=== PATIENT | female | born 1970 | race African-American/Black ===

== ENCOUNTER 2017-02-21 13:43 | Emergency (ER) | payer OTHER ==
[2017-02-21 16:01] VITALS: BP 124/85
== END 2017-02-21 16:01 | disposition home or self-care (01) ==
LOC: ED 13:43
DX: J01.90 Acute sinusitis, unspecified (principal); J45.909 Unspecified asthma, uncomplicated

== ENCOUNTER 2017-03-12 22:39 | Emergency (ER) | payer OTHER ==
[2017-03-13 00:59] VITALS: BP 132/81
== END 2017-03-13 00:59 | disposition home or self-care (01) ==
LOC: ED 22:39
DX: B37.9 Candidiasis, unspecified (principal); R05 Cough; Z79.52 Long term (current) use of systemic steroids; Z88.0 Allergy status to penicillin; Z90.81 Acquired absence of spleen; Z93.0 Tracheostomy status

== ENCOUNTER 2018-04-19 14:10 | Emergency (ER) | payer OTHER ==
[~2018-04-19] VITALS: Ht 165.1 cm; Wt 40.0 kg
[~2018-04-19 14:10] MED LIST: BD LACTINEX1.4 MG PO; LEVAQUIN750 MG PO; PREDNISONE10 MG PO; SYMBICORT1 AE3 INH; VENTOLIN H0.09 MG/A1 INH
[2018-04-19 14:14] VITALS: Ht 165.1 cm; Wt 40.0 kg
[2018-04-19 15:10] LABS: CARBON DIOXIDE 29.2 mmol/L (21-32); CHLORIDE SERUM 102 mmol/L (98-107); CREATININE SERUM 0.8 mg/dL (0.6-1.0); GFR1 > 60 mL/min; GLUCOSE SERUM 82 mg/dL (74-106); POTASSIUM SERUM 3.8 mmol/L (3.5-5.1); SODIUM SERUM 136 mmol/L (136-145)
[2018-04-19 15:11] LABS: BASOPHIL % 0.4 % (0-2)
[2018-04-19 15:12] LABS: PLATELET COUNT 438 x10^3mcL (130-400); RED CELL DISTRIBUTION WIDTH 14.9 % (11.5-14.5)
[2018-04-19 15:21] LABS: ALBUMIN 3.9 g/dL (3.4-5.0); ALKALINE PHOSPHATASE 56 U/L (46-116); ALT/SGPT 42 U/L (14-59); AMYLASE 125 U/L (25-115); AST/SGOT 25 U/L (15-37); BILIRUBIN TOTAL 0.8 mg/dL (0.20-1.00); LIPASE 146 IU/L (73-393); TOTAL PROTEIN, SERUM 7.8 g/dL (6.4-8.2)
[2018-04-19 16:51] VITALS: BP 115/74
== END 2018-04-19 16:51 | disposition home or self-care (01) ==
LOC: ED 14:10
PROVIDERS: Emergency Medicine
DX: R10.13 Epigastric pain (principal); R11.10 Vomiting, unspecified; R19.7 Diarrhea, unspecified; J45.909 Unspecified asthma, uncomplicated; Z88.0 Allergy status to penicillin; Z88.8 Allergy status to other drugs, medicaments and biological substances
CPT/HCPCS: J1885; J7030; Q0162

== ENCOUNTER 2018-04-22 03:33 | Inpatient (IN) | payer OTHER ==
[~2018-04-22] VITALS: Ht 165.1 cm; Wt 39.9 kg
[2018-04-22 04:03] VITALS: Ht 165.1 cm; Wt 39.9 kg
[2018-04-22 05:03] LABS: BASOPHIL % 0.5 % (0-2); PLATELET COUNT 387 x10^3mcL (130-400)
[2018-04-22 05:05] LABS: RED CELL DISTRIBUTION WIDTH 14.9 % (11.5-14.5)
[2018-04-22 05:10] LABS: CALCIUM 8.6 mg/dL (8.5-10.1); CARBON DIOXIDE 26.5 mmol/L (21-32); CHLORIDE SERUM 105 mmol/L (98-107); CREATININE SERUM 0.9 mg/dL (0.6-1.0); GFR1 > 60 mL/min; GLUCOSE SERUM 93 mg/dL (74-106); POTASSIUM SERUM 3.5 mmol/L (3.5-5.1); SODIUM SERUM 140 mmol/L (136-145)
[2018-04-22 05:14] LABS: ALBUMIN 3.5 g/dL (3.4-5.0); ALKALINE PHOSPHATASE 50 U/L (46-116); ALT/SGPT 25 U/L (14-59); AST/SGOT 16 U/L (15-37); BILIRUBIN TOTAL 0.61 mg/dL (0.20-1.00); LIPASE 127 IU/L (73-393); TOTAL PROTEIN, SERUM 6.9 g/dL (6.4-8.2)
[2018-04-22 06:22] LABS: UA SPECIFIC GRAVITY <=1.005 (1.005-1.035); microscopic required? YES; urine erythrocyte 1+ (NEGATIVE)
[2018-04-22 10:01] LABS: T3 TOTAL 0.91 ng/mL
[2018-04-22 10:04] VITALS: BP 106/71
[2018-04-22 10:06] LABS: FREE T4 0.78 ng/dL (0.76-1.46); FREE THYROXINE INDEX 2.3 ug/dL (1.4-4.5); T4(THYROXINE) 6.9 ug/dL (4.7-13.3)
[2018-04-22 10:09] LABS: CHOLESTEROL/HDL RATIO 2.2
[2018-04-22 10:56] LABS: AMPHETAMINE QUAL UR NONE DETECTED (See below)
[2018-04-22 13:00] VITALS: BP 92/54
[2018-04-22 17:13] VITALS: BP 95/53
[2018-04-22 20:56] VITALS: BP 90/57
[2018-04-23 01:00] VITALS: BP 96/55
[2018-04-23 05:27] VITALS: BP 117/74
[2018-04-23 06:09] LABS: BASOPHIL % 0.6 % (0-2); PLATELET COUNT 386 x10^3mcL (130-400)
[2018-04-23 06:30] LABS: CALCIUM 7.6 mg/dL (8.5-10.1); CARBON DIOXIDE 24.8 mmol/L (21-32); CHLORIDE SERUM 109 mmol/L (98-107); CREATININE SERUM 0.7 mg/dL (0.6-1.0); GFR1 > 60 mL/min; GLUCOSE SERUM 85 mg/dL (74-106); MAGNESIUM 2.2 mg/dL (1.8-2.4); PHOSPHOROUS 3.1 mg/dL (2.5-4.9); POTASSIUM SERUM 3.5 mmol/L (3.5-5.1); SODIUM SERUM 143 mmol/L (136-145)
[2018-04-23 06:41] LABS: RED CELL DISTRIBUTION WIDTH 14.7 % (11.5-14.5)
[2018-04-23 09:18] VITALS: BP 92/50
[2018-04-23 13:26] VITALS: BP 95/62
[2018-04-23 16:18] VITALS: BP 97/63
[2018-04-23 21:25] VITALS: BP 81/54
[2018-04-24 05:38] VITALS: BP 113/72
[2018-04-24 09:16] VITALS: BP 94/64
[2018-04-24 10:34] LABS: BASOPHIL % 0.4 % (0-2)
[2018-04-24 10:38] LABS: CALCIUM 8.7 mg/dL (8.5-10.1); CARBON DIOXIDE 23.8 mmol/L (21-32); CHLORIDE SERUM 109 mmol/L (98-107); CREATININE SERUM 0.7 mg/dL (0.6-1.0); GFR1 > 60 mL/min; GLUCOSE SERUM 70 mg/dL (74-106); POTASSIUM SERUM 4.7 mmol/L (3.5-5.1); SODIUM SERUM 143 mmol/L (136-145)
[2018-04-24 10:47] LABS: PLATELET COUNT 408 x10^3mcL (130-400); RED CELL DISTRIBUTION WIDTH 15.2 % (11.5-14.5)
[2018-04-24 16:22] VITALS: BP 94/64
[2018-04-24] MEDS ORDERED: MAC100 PO (16:28)
== END 2018-04-24 19:24 | disposition home or self-care (01) | DRG 388 ==
LOC: ED 03:33 → MU 08:37 → DU 08:37 → MU 09:49 → DU 09:52 → MU 04-23 10:02
PROVIDERS: Emergency Medicine; Internal Medicine
DX: K56.7 Ileus, unspecified (principal); E43 Unspecified severe protein-calorie malnutrition; N39.0 Urinary tract infection, site not specified; Z68.1 Body mass index [BMI] 19.9 or less, adult; E83.42 Hypomagnesemia
CPT/HCPCS: 83880; 84439; J0696; J2405; J2765; J3475; J7030; J7040; J7042; Q0092

== ENCOUNTER 2018-10-06 18:47 | Emergency (ER) | payer OTHER ==
[~2018-10-06] VITALS: Ht 165.1 cm; Wt 47.2 kg
[~2018-10-06 18:47] MED LIST changes: +MAC100 PO
[2018-10-06 18:58] VITALS: Ht 165.1 cm; Wt 47.2 kg
[2018-10-06 19:45] VITALS: BP 118/81
== END 2018-10-06 19:45 | disposition home or self-care (01) ==
LOC: ED 18:47
DX: M79.5 Residual foreign body in soft tissue (principal); J32.9 Chronic sinusitis, unspecified; J45.909 Unspecified asthma, uncomplicated; Z90.81 Acquired absence of spleen; Z88.0 Allergy status to penicillin; Z88.6 Allergy status to analgesic agent; Z88.8 Allergy status to other drugs, medicaments and biological substances; Z98.890 Other specified postprocedural states

== ENCOUNTER 2018-11-03 03:28 | Emergency (ER) | payer OTHER ==
[~2018-11-03] VITALS: Ht 157.5 cm; Wt 56.7 kg
[2018-11-03 03:38] VITALS: Ht 157.5 cm; Wt 56.7 kg
[2018-11-03 04:06] LABS: PLATELET COUNT 270 x10^3mcL (130-400); RED CELL DISTRIBUTION WIDTH 13.8 % (11.5-14.5)
[2018-11-03 04:39] LABS: CARBON DIOXIDE 33.3 mmol/L (21-32); CHLORIDE SERUM 103 mmol/L (98-107); CREATININE SERUM 0.9 mg/dL (0.6-1.0); GFR1 > 60 mL/min; GLUCOSE SERUM 87 mg/dL (74-106); SODIUM SERUM 139 mmol/L (136-145)
[2018-11-03 04:43] LABS: ALBUMIN 3.8 g/dL (3.4-5.0); ALKALINE PHOSPHATASE 43 U/L (46-116); ALT/SGPT 35 U/L (14-59); AST/SGOT 24 U/L (15-37); BILIRUBIN TOTAL 0.4 mg/dL (0.20-1.00); LIPASE 143 IU/L (73-393); TOTAL PROTEIN, SERUM 7.6 g/dL (6.4-8.2)
[2018-11-03 04:56] LABS: BAND NEUTROPHIL 1 % (0-10); MONOCYTE 12 % (0-7); SEGMENTED NEUTROPHILS 29 % (37-75)
[2018-11-03 05:01] LABS: rbc morphology (normal/abnorm) ABNORMAL (NORMAL)
[2018-11-03 05:02] LABS: PLATELET MORPHOLOGY PLATELETS NORMAL; acanthocyte (spur cell) 1+
[2018-11-03 05:25] VITALS: BP 132/88
== END 2018-11-03 05:25 | disposition home or self-care (01) ==
LOC: ED 03:28
PROVIDERS: Emergency Medicine
DX: N39.0 Urinary tract infection, site not specified (principal); Z88.0 Allergy status to penicillin; Z88.6 Allergy status to analgesic agent; Z88.8 Allergy status to other drugs, medicaments and biological substances; Z98.890 Other specified postprocedural states; Z90.49 Acquired absence of other specified parts of digestive tract
CPT/HCPCS: 36415

== ENCOUNTER 2019-01-12 12:25 | Emergency (ER) | payer OTHER ==
[~2019-01-12] VITALS: Ht 165.1 cm; Wt 50.3 kg
[2019-01-12 12:34] VITALS: BP 121/71; Ht 165.1 cm; Wt 50.3 kg
== END 2019-01-12 15:10 | disposition home or self-care (01) ==
LOC: ED 12:25
DX: S00.451A Superficial foreign body of right ear, initial encounter (principal); H60.91 Unspecified otitis externa, right ear; J45.909 Unspecified asthma, uncomplicated; Q89.01 Asplenia (congenital); Z98.890 Other specified postprocedural states; Z88.0 Allergy status to penicillin; Z88.8 Allergy status to other drugs, medicaments and biological substances; Z87.19 Personal history of other diseases of the digestive system; W45.8XXA Other foreign body or object entering through skin, initial encounter; Y93.89 Activity, other specified; Y92.89 Other specified places as the place of occurrence of the external cause; Y99.8 Other external cause status

== ENCOUNTER 2019-02-17 00:32 | Emergency (ER) | payer OTHER ==
[~2019-02-17] VITALS: Ht 165.1 cm; Wt 52.2 kg
[2019-02-17 00:44] VITALS: Ht 165.1 cm; Wt 52.2 kg
[2019-02-17 01:23] LABS: AMPHETAMINE QUAL UR NONE DETECTED (See below)
[2019-02-17 02:16] LABS: CALCIUM 8.6 mg/dL (8.5-10.1); CARBON DIOXIDE 30.7 mmol/L (21-32); CHLORIDE SERUM 104 mmol/L (98-107); CREATININE SERUM 0.7 mg/dL (0.6-1.0); GFR1 > 60 mL/min; GLUCOSE SERUM 96 mg/dL (74-106); MAGNESIUM 1.9 mg/dL (1.8-2.4); PHOSPHOROUS 4.2 mg/dL (2.5-4.9); POTASSIUM SERUM 3.9 mmol/L (3.5-5.1); SODIUM SERUM 141 mmol/L (136-145)
[2019-02-17 02:31] VITALS: BP 123/67
== END 2019-02-17 03:17 | disposition home or self-care (01) ==
LOC: ED 00:32
PROVIDERS: Emergency Medicine
DX: M79.18 Myalgia, other site (principal); R41.82 Altered mental status, unspecified; J45.909 Unspecified asthma, uncomplicated; Z98.890 Other specified postprocedural states; Z88.0 Allergy status to penicillin; Z88.6 Allergy status to analgesic agent; Z88.8 Allergy status to other drugs, medicaments and biological substances
CPT/HCPCS: 36415

== ENCOUNTER 2019-08-27 13:30 | Emergency (ER) | payer OTHER ==
[~2019-08-27] VITALS: Ht 165.1 cm; Wt 54.4 kg
[2019-08-27 13:47] VITALS: Ht 165.1 cm; Wt 54.4 kg
[2019-08-27 16:46] VITALS: BP 119/77
== END 2019-08-27 17:04 | disposition home or self-care (01) ==
LOC: ED 13:30
DX: T78.3XXA Angioneurotic edema, initial encounter (principal); J45.909 Unspecified asthma, uncomplicated; Z88.6 Allergy status to analgesic agent; Z88.0 Allergy status to penicillin; Z88.8 Allergy status to other drugs, medicaments and biological substances
CPT/HCPCS: J0171; J1100

== ENCOUNTER 2019-09-03 13:11 | Emergency (ER) | payer OTHER ==
[~2019-09-03] VITALS: Ht 165.1 cm; Wt 54.4 kg
[2019-09-03 13:38] VITALS: Ht 165.1 cm; Wt 54.4 kg
[2019-09-03 14:21] LABS: BASOPHIL % 0.5 % (0-2); RED CELL DISTRIBUTION WIDTH 13.6 % (11.5-14.5)
[2019-09-03 14:35] LABS: PLATELET COUNT 405 x10^3mcL (130-400)
[2019-09-03 15:11] VITALS: BP 102/66
[2019-09-03 15:15] LABS: CALCIUM 8.4 mg/dL (8.5-10.1); CARBON DIOXIDE 28.4 mmol/L (21-32); CHLORIDE SERUM 103 mmol/L (98-107); CREATININE SERUM 0.8 mg/dL (0.6-1.0); GFR1 > 60 mL/min; GLUCOSE SERUM 94 mg/dL (74-106); SODIUM SERUM 140 mmol/L (136-145)
[2019-09-03 15:20] LABS: ALKALINE PHOSPHATASE 50 U/L (46-116); ALT/SGPT 25 U/L (14-59); AST/SGOT 21 U/L (15-37); BILIRUBIN TOTAL 0.4 mg/dL (0.20-1.00); LIPASE 190 IU/L (73-393)
[2019-09-03 15:23] LABS: AMYLASE 203 U/L (25-115)
== END 2019-09-03 15:45 | disposition home or self-care (01) ==
LOC: ED 13:11
DX: K59.00 Constipation, unspecified (principal); R10.84 Generalized abdominal pain; R14.0 Abdominal distension (gaseous)
CPT/HCPCS: 36415; Q0162

== ENCOUNTER 2019-11-27 18:38 | Emergency (ER) | payer OTHER ==
[~2019-11-27] VITALS: Ht 162.6 cm; Wt 55.8 kg
[2019-11-27 18:59] VITALS: Ht 162.6 cm; Wt 55.8 kg
== END 2019-11-27 19:24 | disposition home or self-care (01) ==
LOC: ED 18:38
DX: J40 Bronchitis, not specified as acute or chronic (principal); J45.909 Unspecified asthma, uncomplicated; Z87.19 Personal history of other diseases of the digestive system; Z88.0 Allergy status to penicillin; Z88.6 Allergy status to analgesic agent
CPT/HCPCS: 87804

== ENCOUNTER 2020-10-04 08:31 | Emergency (ER) | payer OTHER ==
[~2020-10-04] VITALS: Ht 165.1 cm; Wt 53.5 kg
[~2020-10-04 08:31] MED LIST changes: +AZITHROMYCIN500 M3 PO; +BEN50 PO; +PEPCID AC20 M2 PO
[2020-10-04 08:53] VITALS: BP 130/736; Ht 165.1 cm; Wt 53.5 kg
== END 2020-10-04 14:45 | disposition left against medical advice (07) ==
LOC: ED 08:31
DX: Z53.21 Procedure and treatment not carried out due to patient leaving prior to being seen by health care provider (principal)

== ENCOUNTER 2020-11-19 05:50 | Emergency (ER) | payer OTHER ==
[~2020-11-19] VITALS: Ht 170.2 cm; Wt 49.9 kg
[2020-11-19 06:08] VITALS: Ht 170.2 cm; Wt 49.9 kg
[2020-11-19 08:54] LABS: UA SPECIFIC GRAVITY >=1.030 (1.005-1.035); microscopic required? YES; urine erythrocyte TRACE (NEGATIVE)
[2020-11-19 10:29] VITALS: BP 123/87
== END 2020-11-19 10:29 | disposition home or self-care (01) ==
LOC: ED 05:50
PROVIDERS: Emergency Medicine
DX: J45.909 Unspecified asthma, uncomplicated (principal); M54.5 Low back pain; R51.9 Headache, unspecified; Z90.89 Acquired absence of other organs; Z20.828 Contact with and (suspected) exposure to other viral communicable diseases; Z88.0 Allergy status to penicillin; Z88.6 Allergy status to analgesic agent; Z88.8 Allergy status to other drugs, medicaments and biological substances
CPT/HCPCS: U0003

== ENCOUNTER 2020-12-06 06:53 | Emergency (ER) | payer OTHER ==
[~2020-12-06] VITALS: Ht 170.2 cm; Wt 49.9 kg
[2020-12-06 07:19] VITALS: Ht 170.2 cm; Wt 49.9 kg
[2020-12-06 08:34] LABS: BASOPHIL % 0.2 % (0.2-1.3); PLATELET COUNT 342 x10^3mcL (179-408); RED CELL DISTRIBUTION WIDTH 13.5 % (12.3-17.7)
[2020-12-06 08:40] LABS: CALCIUM 8.8 mg/dL (8.5-10.1); CARBON DIOXIDE 34.3 mmol/L (21-32); CHLORIDE SERUM 104 mmol/L (98-107); CREATININE SERUM 0.7 mg/dL (0.6-1.0); GFR1 > 60 mL/min; GLUCOSE SERUM 81 mg/dL (74-106); POTASSIUM SERUM 3.5 mmol/L (3.5-5.1); SODIUM SERUM 141 mmol/L (136-145)
[2020-12-06] MEDS ORDERED: AZITHROMYCIN500 M3 PO (10:12)
[2020-12-06 10:40] VITALS: BP 128/79
== END 2020-12-06 10:40 | disposition home or self-care (01) ==
LOC: ED 06:53
PROVIDERS: Emergency Medicine
DX: J40 Bronchitis, not specified as acute or chronic (principal); R06.02 Shortness of breath; Z20.828 Contact with and (suspected) exposure to other viral communicable diseases; Z88.0 Allergy status to penicillin; Z88.6 Allergy status to analgesic agent; J45.909 Unspecified asthma, uncomplicated; Z90.89 Acquired absence of other organs
CPT/HCPCS: U0003